=== PATIENT | male | born 1945 | race Caucasian/White ===

== ENCOUNTER 2017-04-19 13:02 | Observation (INO) | payer MEDICARE, OTHER ==
--- NOTE | 2017-04-19 13:04 | HP ---
SUPERVISING PHYSICIAN: Kenneth Kraft M.D. CHIEF COMPLAINT: Weakness. HISTORY OF PRESENT ILLNESS: This is a 71 year-old male patient who was visiting his brother here in [place]. His brother is a patient of Dr. Ike birch. Over the last month or so he has really felt very weak. He has been extremely short of breath, has a very difficult time with any kind of exertion. He has a significant history of multiple myeloma. He actually lived out of state for many years but recently sold his house and is visiting his family throughout the country. He had been in [place] and recently came to visit his brother here in [place]. He said the shortness of breath and the weakness started about the time he went to [place] which was around the end of February. Over the last couple of days, he got to the point where he decided he had to go see his brother's physician, Dr. Iván Tamayo yesterday. After he had seen Dr. Tamayo, his hemoglobin was 5.7 and platelets were 10,000 during his clinic visit. Dr. Tamayo had him come in this morning and the patient's oncologist in [place], [place], Dr. Virgilio Crowe, was contacted about treatment. It was planned that the patient would be admitted to the hospital for several units of packed red blood cells as well as a platelet infusion, then his brother would take him to [place] for his appointment with his oncologist in the next day or so. The patient was directly admitted to the hospital. PAST MEDICAL HISTORY: 1. Multiple myeloma. 2. Atrial fibrillation. 3. Hypertension. 4. Pedal edema. 5. Deep venous thrombosis. 6. Chronic constipation. 7. Hypoglycemia. 8. Chronic thrombocytopenia with his normal levels being around 60,000. PAST SURGICAL HISTORY: 1. Stem cell transplant in 2006 and 2009. 2. Multiple cervical and lumbar spinal surgeries. OUTPATIENT MEDICATIONS: Per the EMR and awaiting verification. ALLERGIES: NO KNOWN ALLERGIES. SOCIAL HISTORY: He denies any smoking, ETOH or illicit drug use. He does not have a permanent residence, but he does travel around visiting family members as he just sold his home in January and has been traveling the country visiting family and friends. REVIEW OF SYSTEMS: Positive for fatigue, negative for fever. HEENT: Negative for sinus symptoms, ear pain, vision changes or sore throat. RESPIRATORY: Positive for shortness of breath, negative for coughing and wheezing. CARDIAC: Negative for chest pain, tachycardia or palpitations. GASTROINTESTINAL: Negative for abdominal pain, nausea, vomiting, constipation or diarrhea. NEUROLOGIC: Positive for dizziness, negative for headache or seizures. GENITOURINARY: Negative for dysuria, hematuria or nocturia. HEMATOLOGY: Negative for any abnormal bleeding. Positive for some bruising. PHYSICAL EXAMINATION: VITAL SIGNS: He is afebrile, heart rate 68, blood pressure 112/71, respiratory rate 18, O2 sat is 93% on 2 liters nasal cannula. GENERAL: This is a 71 year-old male patient who is lying in his hospital bed. He is in no acute distress. HEENT: Normocephalic and atraumatic. His inner eyelids are very pale. Oropharynx is clear. Oral mucous membranes are moist. NECK: Supple without mass. CHEST: A few scattered rhonchi in the apices, otherwise he is clear to auscultation. There is equal rise and fall of the chest with inspiration and expiration. CARDIOVASCULAR: Regular rate and rhythm. ABDOMEN: Soft, nondistended, non-tender. Bowel sounds are positive. EXTREMITIES: No cyanosis, clubbing or edema. LABORATORY: WBCs are 5.7, RBCs are 1.97, hemoglobin 5.9, hematocrit 17.8, platelet count 10,000. Sodium 132, potassium 5, chloride 99, carbon dioxide 24 , BUN 27, creatinine 1.61, glucose 122. Total bilirubin 1.1, direct bilirubin 0.2, AST 18, ALT 10, alkaline phosphatase 41. Serum total protein 7.9, albumin 3.2, globulin 4.7. All other labs and films have been reviewed via the EMR. ASSESSMENT: 1. Severe symptomatic anemia with hemoglobin 5.7 most likely secondary to multiple myeloma. 2. Severe thrombocytopenia with a platelet count of 10,000 most likely secondary to multiple myeloma with a baseline platelet count of 60,000. 3. Multiple myeloma currently being followed by Dr. Virgilio Crowe in [place], [place], telephone number [phone]. 4. History of atrial fibrillation. 5. Hypertension. 6. History of deep venous thrombosis. PLAN: We will place the patient in Observation. I called his oncologist in [place], Dr. Virgilio Crowe, and he would like the patient to get packed red blood cells so his hemoglobin is greater than 8. He also wanted the patient 2 bags of platelets. We will get those transfused. Then he will be discharged so his brother can take him to his oncologist in [place]. At this point, we are still waiting for the blood to be brought in as there are some protein incompatibilities and we are waiting for his blood to be typed and cross- matched. Meanwhile we will monitor the patient closely and follow as needed. Dr. Kraft is the collaborating physician available for consultation. [facility][id number] [facility]ENTER[facility]
[2017-04-19] MEDS ORDERED: ACETAMINOPHEN 325 MG TAB PO ONE (13:10)
[2017-04-19] MEDS ORDERED: diphenhydrAMINE HCL 50 MG/ML VIAL IV ONE (13:10)
[2017-04-19] MEDS ORDERED: FUROSEMIDE INJ 20 MG/2 ML VIAL IV ONE ×2 (13:10→13:18)
[2017-04-19] MEDS ORDERED: ACETAMINOPHEN 325 MG TAB PO PRN (13:13)
[2017-04-19] MEDS ORDERED: ONDANSETRON INJ 4 MG/2 ML VIAL IV PRN (13:13)
[2017-04-19] MEDS ORDERED: SODIUM CHLORIDE 0.9% 500ML 500 ML IVS SCH (13:30)
[2017-04-19] MEDS ORDERED: PANTOPRAZOLE SODIUM IV 40 MG VIAL IV SCH (13:30)
[2017-04-19] MEDS ORDERED: IV SET AND CAP CHANGE INJ INJ SCH (13:30)
[2017-04-19] MEDS: METOPROLOL TARTRATE 50 MG TAB PO SCH (20:16)
[2017-04-20] MEDS: SODIUM CHLORIDE 0.9% (FLUSH) 10 ML SYG IV PRN (00:25)
[2017-04-20] MEDS: MORPHINE *IMMEDIATE RELEASE* 15 MG TAB PO PRN ×2 (00:30→18:21)
[2017-04-20] MEDS ORDERED: PANTOPRAZOLE SODIUM IV 40 MG VIAL ONE (04:56)
[2017-04-20] MEDS: PANTOPRAZOLE SODIUM IV 40 MG VIAL IV SCH (06:41)
[2017-04-20] MEDS ORDERED: ACETAMINOPHEN 325 MG TAB PO ONE (07:37)
[2017-04-20] MEDS ORDERED: diphenhydrAMINE HCL 50 MG/ML VIAL IV ONE (07:38)
[2017-04-20] MEDS: FERROUS SULFATE 325 MG TAB PO SCH (08:30)
[2017-04-20] MEDS: METOPROLOL TARTRATE 50 MG TAB PO SCH ×2 (09:34→16:26)
[2017-04-20] MEDS ORDERED: FUROSEMIDE INJ 20 MG/2 ML VIAL IV ONE (10:50)
--- NOTE | 2017-04-20 11:08 | PN ---
SUPERVISING PHYSICIAN: Kenneth Kraft MD DATE: 04/20/17 SUBJECTIVE: The patient is sitting up in his hospital bed. He is in no acute distress. There were some issues overnight with getting his blood due to some incompatibilities and it had to come in from [place]. He was aware of the issue. His heart rate has been low but that is usual for him. He has no complaints of chest pain, shortness of breath or abdominal pain. He is extremely weak, but he has been like that for some time. His heart rate has been in the 40s many times in the past. OBJECTIVE: VITAL SIGNS: Afebrile. Pulse 58, it has dropped as low as 44. It is irregular, atrial fibrillation on the threat monitoring analyst. Blood pressure 104/ 67. Respiratory rate 16. O2 saturation 100% on 2.5 liters nasal cannula. LUNGS: Essentially clear to auscultation bilaterally, somewhat diminished throughout. CARDIAC: Bradycardic rate, irregular rhythm. Atrial fibrillation on the threat monitoring analyst. ABDOMEN: Soft, nondistended, nontender. Bowel sounds are positive. EXTREMITIES: No cyanosis, clubbing or edema. NEUROLOGIC: Awake, alert and oriented times three. LABORATORY: WBC 6.1, RBC 2.02, hemoglobin 6.1, hematocrit 18.4, platelet count 14. Sodium 134, potassium 4.6, chloride 99, carbon dioxide 25, BUN 29, creatinine 1.48, serum osmolality 273.7, calcium 8.8, total bilirubin 1.2, AST 17, ALT 9, alkaline phosphatase 41, serum total protein 8.5, albumin 3.4, globulin 5.1. All other labs and films have been reviewed via the EMR. ASSESSMENT: 1. Severe symptomatic anemia with hemoglobin 5.7 most likely secondary to multiple myeloma. 2. Severe thrombocytopenia with a platelet count of 10,000 most likely secondary to multiple myeloma with a baseline platelet count of 60,000. 3. Multiple myeloma currently being followed by Dr. Virgilio Crowe in [place], [place], telephone number [phone]. 4. History of atrial fibrillation. 5. Hypertension. 6. History of deep venous thrombosis. PLAN: We will continue present supportive care. It did take quite some time for him to get his blood and platelets from [place], but they are infusing at this time. He will get Lasix 20 mg between his first and second units. Two bags of platelets will be infused after his second unit of blood. A hemoglobin and hematocrit will be done after that and if his hemoglobin is less than 8, we will transfuse the third unit as per instructions from the patient's oncologist , Dr. Virgilio Crowe in [place], [place]. Hopefully he can be discharged tomorrow morning so he can be driven to his oncologist in [place] by his brother. Otherwise, we will continue to monitor the patient closely and follow as needed. Dr. Kraft is the collaborating physician and available for consultation. #[id number] [facility]
[2017-04-20] MEDS: DIGOXIN 0.125 MG TAB PO SCH (11:35)
[2017-04-20] MEDS ORDERED: methylPREDNISolone SODIUM SUC 40 MG/ML VIAL IV ONE (14:00)
[2017-04-21] MEDS: PANTOPRAZOLE SODIUM IV 40 MG VIAL IV SCH (06:17)
[2017-04-21] MEDS: SODIUM CHLORIDE 0.9% (FLUSH) 10 ML SYG IV PRN (06:18)
[2017-04-21 07:39] VITALS: TEMP 97.3
[2017-04-21] MEDS: MORPHINE *IMMEDIATE RELEASE* 15 MG TAB PO PRN (07:54)
[2017-04-21] MEDS: METOPROLOL TARTRATE 50 MG TAB PO SCH (07:54)
[2017-04-21] MEDS: FERROUS SULFATE 325 MG TAB PO SCH (07:56)
[2017-04-21 11:26] VITALS: BP 127/63; O2SAT 92
[2017-04-21] MEDS ORDERED: PNEUMOCOCCAL VACCINE 0.5 ML INJ IM ONE (11:38)
[2017-04-21] MEDS ORDERED: INFLUENZA VIRUS VACC (ADULT) 0.5 ML SYG IM ONE (11:38)
[2017-04-21] MEDS: DIGOXIN 0.125 MG TAB PO SCH (12:15)
[2017-04-22] MEDS ORDERED: PANTOPRAZOLE SODIUM TAB 40 MG PO SCH (06:30)
--- NOTE | 2017-04-25 14:45 | DS ---
SUPERVISING PHYSICIAN: Kenneth Kraft MD DISCHARGE DIAGNOSIS: 1. Severe symptomatic anemia with hemoglobin initially of 5.7 secondary to underlying multiple myeloma, requiring transfusion of multiple units of packed red blood cells, showing good response. 2. Severe thrombocytopenia with a platelet count of 10,000 secondary to multiple myeloma with review of the patient's baseline status showing platelet count of 60,000, requiring transfusion of apheresis platelets, showing good response prior to discharge. 3. Multiple myeloma, currently being followed by Dr. Virgilio Crowe in [place], [place], telephone number [phone]. 4. History of atrial fibrillation with controlled ventricular rate. 5. Hypertension. 6. History of deep venous thrombosis. HISTORY OF PRESENT ILLNESS: Mr. Matos is a 71 year-old male patient who was visiting his brother here in [place]. His brother is a patient of Dr. Knapp. Over the last month or so, he has really felt very weak. He has been extremely short of breath, has a very difficult time with any kind of exertion. He has a significant history of multiple myeloma. He actually lived out of [facility] for many years, but recently sold his house and is visiting his family throughout the country. He had been in [place] and recently came to visit his brother here in [place]. He said the shortness of breath and the weakness started about the time he went to [place] which was around the end of February. Over the last couple of days, he got to the point where he decided he had to go see a physician, so he went to see his brother's physician, Dr. Iván Tamayo, the day before admission. After he had seen Dr. Tamayo, his hemoglobin was 5.7 and platelets were 10,000 during his clinic visit. Dr. Tamayo had him come to the office the morning of admission and the patient's oncologist in [place], [place], Dr. Virgilio Crowe, was contacted about treatment. It was planned that the patient would be admitted to the hospital for several units of packed red blood cells as well as a platelet infusion, then his brother would take him to [place] for his appointment with his oncologist in the next day or so. The patient was directly admitted to the hospital in stable condition. LABORATORY: CBC on admission showed white count 5.7, hemoglobin 5.9, hematocrit 17.8, platelet count 10,000, RBCs 1.97, differential showed no left shift. After transfusion of 3 units of packed red blood cells and 2 units of platelets, CBC showed improvement and prior to discharge his white count was 3.4 , hemoglobin 9.6, hematocrit 20.2, platelet count 76,000, differential remained unchanged. Chemistries showed a persistent hyponatremia with sodium 132 on admission and discharge 133, potassium normal at 4.6, carbon dioxide 25, BUN elevated initially at 27 as well as at discharge was 27, but his creatinine had improved from 1.61 to 1.2 at discharge. Calcium was normal at 8.9 and 8.7 at discharge. Total bilirubin was elevated at 1.1 initially and 1.7 at discharge. All other liver functions were within normal limits. MICROBIOLOGY: No microbiology was admitted for review. RADIOLOGY: No radiographic studies were completed. HOSPITAL COURSE: Mr. Matos was admitted as noted in history of present illness for transfusion of 3 units of packed red blood cells and 2 units of platelets. He was his units and prior to discharge was doing well. He was afebrile, temperature 97.3, pulse 51, blood pressure 126/68, respirations 18, saturation 98% on nasal cannula at 1.5 liters. He did remain afebrile and hemodynamically stable. The lowest blood pressure was noted to be on admission at 106/66. He tolerated both transfusions of platelets and packed red blood cells without any complications. Repeat laboratory studies were improved from admission and the patient felt much better. He was felt clinically well enough to be discharged to again followup with Dr. Tamayo the day after discharge and continue with his followup with his oncologist. PLAN: Mr. Matos was discharged on 04/21/17 with instructions to followup with Dr. Tamayo the morning of 04/22/17 at 10:30 as scheduled. He was to resume his home medications as previous prior to hospitalization. He was to increase his diet to usual diet as tolerated and increase his activity as tolerated. He was to return to the hospital should he have any worsening or concerning symptoms. No new medications were added at time of discharge. DISCHARGE MEDICATIONS: 1. Morphine sulfate 30 mg tablets q.4h. as needed for pain. 2. Metoprolol tartrate 25 mg twice daily. 3. Ferrous sulfate 325 mg daily. 4. Vitamin D3 2000 units daily. 5. Digoxin 0.125 mg daily. 6. Vitamin B12 1000 mcg sublingual daily. CONDITION AT DISCHARGE: Stable and improved. #[id number] [facility]
== END 2017-04-21 12:33 | disposition home or self-care (01) ==
LOC: INTOOBSV 13:02 → MS 13:02
PROVIDERS: ADMIT Nurse Practitioner Acute Care; ATTEND Nurse Practitioner Family
DX: D64.9 Anemia, unspecified (principal); D69.59 Other secondary thrombocytopenia; C90.00 Multiple myeloma not having achieved remission; I48.91 Unspecified atrial fibrillation; I10 Essential (primary) hypertension; E87.1 Hypo-osmolality and hyponatremia; R06.02 Shortness of breath; Z23 Encounter for immunization; Z79.899 Other long term (current) drug therapy; Z86.718 Personal history of other venous thrombosis and embolism; Z94.84 Stem cells transplant status
CPT/HCPCS: 36415 ×3; 80053 ×3; 82248; 85014; 85018; 85025 ×3; 86156; 86850; 86870; 86880; 86900; 86901; 86922 ×5; 90674; 90732; 94760 ×9; 94762; 96374; 96375; 96376 ×2; G0008; G0009; G0378 ×2; J1030; J1200; J1940; J7040; P9016 ×3; P9035 ×2

== ENCOUNTER 2017-04-29 10:35 | Observation (INO) | payer MEDICARE, OTHER ==
--- NOTE | 2017-04-29 10:48 | HP ---
SUPERVISING PHYSICIAN: Maxim Golden MD CHIEF COMPLAINT: Weakness, anemia. HISTORY OF PRESENT ILLNESS: Mr. Matos is a 71 year-old male patient that currently is visiting his brother here in [place]. He is followed by Dr. Tamayo but has an oncologist/ in school suspension aide in [place], [place], Dr. Poole. He has a history of multiple myoma and was recently in the hospital here in [place] on 04/19/17 for severe anemia with a hemoglobin of 5.7 along with thrombocytopenia. He was transfused 2 units of packed red blood cells and 2 apheresis units of platelets. He was discharged on 04/21/17 and had followup with Dr. Tamayo who at which point, his intention was to go back to his oncologist in [place] shortly after. The patient remained in [place] and once again , presented to Dr. Tamayo's office today with a CBC showing pancytopenia with platelet count of 11,000 and hemoglobin of 8.1. He was once again having symptoms similar to previous admission of weakness. Dr. Tamayo requested that due to the patient's severe thrombocytopenia, we place the patient in observation so he again can have infusion of platelets along with 2 units of packed RBCs. The patient was placed in observation directly from Dr. Tamayo's office in stable condition. PAST MEDICAL HISTORY: 1. Multiple myeloma. 2. Atrial fibrillation. 3. Hypertension. 4. Deep venous thrombosis. 5. Chronic pedal edema. 6. Chronic constipation. 7. Chronic thrombocytopenia with normal levels being around 60,000. 8 History of hypoglycemia. PAST SURGICAL HISTORY: 1. Stem cell transplant in 2006 and 2009. 2. Multiple cervical and lumbar spinal surgeries. OUTPATIENT MEDICATIONS: 1. Morphine 30 mg every 4 hours as needed. 2. Metoprolol 25 mg twice a day. 3. Ferrous sulfate 325 mg. 4. Digoxin 0.125 mg daily. 5. Vitamin B12, 1000 mcg sublingual daily. 6. Vitamin B3, 2000 units daily. . ALLERGIES: NO KNOWN ALLERGIES. SOCIAL HISTORY: The patient has no remote history of smoking, alcohol or illicit drug use. He does have residence but travels around visiting family members after selling his home in January and he has been traveling the country visiting family and friends. REVIEW OF SYSTEMS: Positive for fatigue, negative for fever or chills. HEENT: Negative for ear pain, sore throat, vision changes. RESPIRATORY: Notes some shortness of breath with exertion but denies coughing and wheezing. CARDIAC: Negative for chest pain, tachycardia or palpitations or syncopal episodes. GASTROINTESTINAL: Denies abdominal pain, nausea, vomiting, constipation or diarrhea. NEUROLOGIC: He does have some dizziness associated with low blood count, negative for headache or seizures. GENITOURINARY: Denies dysuria, hematuria or nocturia or any other urinary symptoms. HEMATOLOGY: Negative for any abnormal bleeding. Positive for some bruising. Has history of multiple myeloma. PHYSICAL EXAMINATION: VITAL SIGNS: Temperature 97.7, pulse 52, blood pressure 118/69, respirations 17 , saturation 95% on room air. Admission weight 65.4 kg. GENERAL: The patient appears to be in no acute distress. He does appear frail and fatigued but is alert and oriented x 3. HEENT: Tympanic membranes clear bilaterally. Oropharynx is pink and moist without any lesions. NECK: Supple with full range of motion, no tenderness.with no jugular venous distention. . CHEST: Lungs are clear to auscultation bilaterally without rhonchi, rales, or wheezes. CARDIOVASCULAR: Slightly irregular rate and rhythm with no appreciable murmurs , rubs, or gallops. ABDOMEN: Soft, nondistended, non-tender. Bowel sounds are positive. EXTREMITIES: No cyanosis, clubbing or edema. NEUROLOGIC: He is alert and oriented x 3. LABORATORY: White count is down to 2.2, hemoglobin 8.1, hematocrit 24.5. Hemoglobin and hematocrit on 04/21/17 was 9.6 and 28.2. Platelet count down to 11,000 compared to 76,000 after transfusion of 2 apheresis platelets. Differential shows some miniature cells which have been sent off for peripheral pathology review. Chemistry: sodium again shows to be low at 133, potassium elevated at 5.2. BUN 20, creatinine 1.46 which is elevated from discharge at 1.29 on 04/21/17. Glucose 103, liver function shows slightly elevated T-bili at 1.2. Other liver functions showed to be within normal limits. Total protein elevated at 8.9 as well as globulin at 5.4. RADIOLOGY: No radiologic reports are available. ASSESSMENT: 1. Symptomatic anemia with patient having a history of multiple myeloma, having recently been transfused 2 units of packed red blood cells within the last 2 weeks. 2. Pancytopenia with severe thrombocytopenia secondary to underlying multiple myeloma with a baseline platelet count of around 60,000 with patient having been recently transfused 2 units of achoresis platelets. 3. Multiple myeloma followed by Dr. Virgilio Crowe in [place], [place]. His number is [phone]. 4. History of atrial fibrillation. 5. Hypertension. 6. History of deep venous thrombosis. PLAN: The patient is placed in observation. Dr. Tamayo requested the patient be transfused an additional 2 units of packed red blood cells and platelets as the patient is now planning to commute back to [place] and with the low platelet count is at high risk for bleeding. Therefore, will transfuse 2 units of achoresis platelets. His hemoglobin and hematocrit does show decrease from admission, discharge on 04/21. Will go ahead and transfuse 2 units of packed red blood cells as well as he is symptomatic and showing significant shortness of breath and weakness. Will anticipate discharge once the patient's units have been transfused and he shows to be stable. Until then, we will continue to monitor and treat appropriately. #[id number] [facility] [place]
[2017-04-29] MEDS ORDERED: diphenhydrAMINE HCL 50 MG/ML VIAL IV ONE ×3 (12:10→19:32)
[2017-04-29] MEDS ORDERED: IV SET AND CAP CHANGE INJ INJ SCH (12:30)
[2017-04-29] MEDS ORDERED: ACETAMINOPHEN 325 MG TAB PO ONE ×2 (16:27→19:32)
[2017-04-29] MEDS ORDERED: SODIUM CHLORIDE 0.9% 500ML 500 ML IVS PRN (16:27)
[2017-04-29] MEDS: METOPROLOL TARTRATE 25 MG TAB PO SCH (17:50)
[2017-04-29] MEDS ORDERED: methylPREDNISolone SODIUM SUC 40 MG/ML VIAL IV ONE (19:32)
[2017-04-29] MEDS: MORPHINE *IMMEDIATE RELEASE* 15 MG TAB PO PRN (19:56)
[2017-04-29] MEDS ORDERED: SODIUM CHLORIDE 0.9% 500ML 500 ML IVS SCH (20:00)
--- NOTE | 2017-04-29 22:34 | PCM.CORE ---
Physician DVT/VTE - Contraindications Medication Contraindication: Medical Contraindication - thrombocytopenia - Nurse DVT Assessment & Total Each Risk Factor Represents 3 Points: Medical PT with Hx of MD, CHF, Severe infection/sepsis Each Risk Factor Represents 2 Points: Age 60-74 DVT Assessment Score: 5 - 5 or more Very High Risk Treatments: Early Ambulation *, Sequential Compression Device
[2017-04-29] MEDS: SODIUM CHLORIDE 0.9% (FLUSH) 10 ML SYG IV PRN (22:59)
[2017-04-30 05:53] VITALS: TEMP 97.4
[2017-04-30] MEDS ORDERED: FUROSEMIDE INJ 20 MG/2 ML VIAL IV ONE (07:00)
[2017-04-30 07:21] VITALS: O2SAT 94
[2017-04-30] MEDS ORDERED: FERROUS SULFATE 325 MG TAB PO SCH (07:30)
[2017-04-30] MEDS ORDERED: DIGOXIN 0.125 MG TAB ONE (08:06)
[2017-04-30] MEDS: METOPROLOL TARTRATE 25 MG TAB PO SCH (08:27)
[2017-04-30] MEDS: SODIUM CHLORIDE 0.9% (FLUSH) 10 ML SYG IV PRN (08:27)
[2017-04-30] MEDS: MORPHINE *IMMEDIATE RELEASE* 15 MG TAB PO PRN (08:31)
[2017-04-30] MEDS ORDERED: CHOLECALCIFEROL 2,000 IU TAB PO SCH (09:00)
[2017-04-30] MEDS ORDERED: CYANOCOBALAMIN 1,000 MCG TAB PO SCH (09:00)
--- NOTE | 2017-04-30 09:07 | RAD ---
PROCEDURE: Chest,2 Views CLINICAL HISTORY: pancytopenia INDICATION: Same as above COMPARISON: 04/18/2017 TECHNIQUE: PA and and lateral chest radiographs were obtained. FINDINGS: Note is made of few old right-sided rib fractures. Multiple old compression deformities are again seen in the mid and lower thoracic spine There are no discrete airspace infiltrates, pneumothoraces or pleural effusions. The pulmonary vascularity is normal The cardiomediastinal silhouette is unremarkable for patient's age and sex. IMPRESSION: There is no acute pleural-parenchymal process seen in the imaged lung [place]. Electronically signed by: Fidencio Hernández MD 04/30/2017 9:06 AM CDT Workstation: [id number]
[2017-04-30] MEDS ORDERED: levoFLOXacin 500 MG TAB PO SCH (10:30)
[2017-04-30 10:44] VITALS: BP 106/58
[2017-04-30] MEDS ORDERED: DIGOXIN 0.125 MG TAB PO SCH (12:00)
[2017-04-30] MEDS ORDERED: levoFLOXacin 500 MG TAB PO ONE (13:00)
--- NOTE | 2017-05-06 14:35 | DS ---
SUPERVISING PHYSICIAN: Maxim Golden MD DISCHARGE DIAGNOSIS: 1. Symptomatic anemia with patient having a history of multiple myeloma, having recently been transfused 2 units of packed red blood cells within the last 2 weeks, again showing severe anemia. 2. Pancytopenia with severe thrombocytopenia secondary to underlying multiple myeloma placing the patient at high risk for bleeding with a baseline platelet count of around 60,000 with patient having been recently received 2 units of apheresis platelets in the past 2 weeks. 3. Multiple myeloma, followed by hematology/oncology, Dr. Virgilio Crowe in [place], [place]. His number is [phone]. 4. History of atrial fibrillation with controlled ventricular rate on digoxin. 5. Hypertension. 6. History of deep venous thrombosis. HISTORY OF PRESENT ILLNESS: Mr. Matos is a 71-year-old male patient that currently is visiting his brother here in [place]. He is followed by Dr. Tamayo, but has an oncologist/ assistant librarian in [place], [place], Dr. Virgilio Crowe. He has a history of multiple myoma and was recently in the hospital here in [place] on 04/19/17 for severe anemia with a hemoglobin of 5.7 along with thrombocytopenia. At that time, he was transfused 2 units of packed red blood cells and 2 apheresis units of platelets. He was discharged on and had followup with Dr. Tamayo who at which point, his intention was to go back to his oncologist in [place] shortly after. The patient remained in [place] and once again presented to Dr. Tamayo's office on date of admission with a CBC showing pancytopenia with platelet count of 11,000 and hemoglobin of 8.1. He was once again having symptoms similar to previous admission of weakness as well as at high risk for bleeding. Dr. Tamayo requested that due to the patient's severe thrombocytopenia, we place the patient in observation so he again can have infusion of platelets along with 2 units of packed RBCs. The patient was placed in observation directly from Dr. Tamayo's office in stable condition. LABORATORY: White count on admission was 2.1. At discharge, it had gone down to 1.4. Hemoglobin on admission was 8.1 with hematocrit 24.5. After infusion of 2 units of packed red blood cells, hemoglobin had gone up to 10.5 and hematocrit to 31.0. Initial platelet count was 11,000. After 2 units of apheresis platelets, recheck was at 77,000. Differential did show decreased absolute neutrophil count with some immature cells with absolute neutrophil count less than 500 at time of discharge. Chemistries on admission showed a hyponatremia with a hypokalemia with potassium 5.2, sodium 133, BUN 20, creatinine 1.46. At discharge, sodium had normalized to 135, potassium had gone up slightly to 5.5. BUN was down to 18, creatinine 1.34. Liver functions on admission just showed a slightly elevated bilirubin at 1.2. Serum total protein was elevated at 8.9 as well as globulin level at 5.4, albumin normal at 3.5. Toxicology screen showed therapeutic digoxin level of 1.2. There was no radiology or microbiologic specimens available for review. He had 2 units of packed red blood cells in addition to 2 units of apheresis platelets. HOSPITAL COURSE: Mr. Matos was admitted as above in history of present illness for severe anemia secondary to underlying multiple myeloma. He was transfused 2 units of packed red blood cells as well as 2 units of platelets. He did show improvement in his blood count although his white count had dropped he had become severely neutropenic with a low absolute neutrophil count. I did discuss the case with his oncologist's physician liaison inspection laboratory assistant who was litigation services manager in regards to placing the patient on neutropenic precautions and recommendations were to start the patient on Levaquin prophylactically and have him followup in the following weeks. On the morning of discharge, the patient was found to be clinically stable. He was afebrile with no episodes of bleeding and hemodynamically stable. He was felt well enough to be discharged to continue with outpatient treatment plan. PLAN: Mr. Matos was discharged to have close clinical followup with his oncologist/assistant librarian as well as Dr. Tamayo in the week after discharge. He was to resume his home medications as instructed and to start new prescriptions as directed. He was to return or call his oncologist or Dr. Tamayo if he had any fever and was to wear a mask to prevent any infection and to avoid all ill friends or family members. DISCHARGE MEDICATIONS: 1. Levaquin 750 mg daily, #14. All other medications were resumed as previous. DIET: Regular diet as tolerated. ACTIVITY: As tolerated. CONDITION AT DISCHARGE: Stable and improved. #[id number] [facility]
== END 2017-04-30 13:00 | disposition home or self-care (01) ==
LOC: INTOOBSV 10:35 → MS 10:35
PROVIDERS: ADMIT Nurse Practitioner Family; ATTEND Nurse Practitioner Family
DX: C90.00 Multiple myeloma not having achieved remission (principal); D63.0 Anemia in neoplastic disease; D61.818 Other pancytopenia; Z94.84 Stem cells transplant status; E87.1 Hypo-osmolality and hyponatremia; E87.6 Hypokalemia; I48.91 Unspecified atrial fibrillation; I10 Essential (primary) hypertension; K59.09 Other constipation; Z79.891 Long term (current) use of opiate analgesic; Z79.899 Other long term (current) drug therapy; Z86.718 Personal history of other venous thrombosis and embolism
CPT/HCPCS: 36415 ×3; 36430; 71020; 80048; 80053; 80162; 85025 ×2; 86850; 86870; 86900; 86901; 86922 ×3; 94760 ×2; J1030; J1200 ×2; J1940; J7040 ×2; P9016 ×2; P9035 ×2